=== PATIENT | female | born 1985 | race Caucasian/White ===

== ENCOUNTER 2017-05-11 12:00 | Emergency (ER) | payer OTHER ==
[2017-05-11 12:04] VITALS: BP 134/51; PULSE 98; TEMP 98.1; BMI 30.8
[2017-05-11 12:15] LABS: PH,URINE 8.5 (4.5-8); URINE BILIRUBIN Negative (NEGATIVE); URINE GLUCOSE (UA) Negative (NEGATIVE); URINE KETONE Negative (NEGATIVE); URINE NITRITE Positive (NEGATIVE)
--- NOTE | 2017-05-11 12:17 | PDOC ---
History of Present Illness - General Chief Complaint: Urinary Problem Stated Complaint: UTI WITH BACK PAIN Time Seen by Provider: 05/11/17 12:11 History Source: Patient Exam Limitations: No Limitations - History of Present Illness Travel History: No Initial Comments: 05/11/17 12:45 31y F hx of utis, pyelonephritis, presenst with complaint of dysuria for the past 3 days. Pt states she has been having dysuria, started taking Azo OTC with improvement of symptoms yetserday, but this morning started to have burning when she urinates as well as pain in her lower abd and radiating up her back bl. pt notes she had a temp of 99.9 yesterday and took tylenol. No other fever noted. Pt dneis any n/v, diarrhea, cp, sob, cough. Past History - Past Medical History Allergies/Adverse Reactions: Allergies Allergy/AdvReac Type Severity Reaction Status Date / Time No Known Allergies Allergy Verified 05/11/17 12:04 Home Medications: Ambulatory Orders Fluconazole 150 mg PO ONCE #1 tablet 05/11/17 Levofloxacin [Levaquin] 750 mg PO DAILY #5 tab 05/11/17 Phenazopyridine HCl [Pyridium] 100 mg PO PRN PRN 05/11/17 COPD: No - Surgical History Appendectomy: Yes - Reproductive History Is Patient Now?: No - Suicide/Smoking/Psychosocial Hx Smoking History: Never smoked Hx Alcohol Use: Yes (RARE) Drug/Substance Use Hx: No Substance Use Type: None Review of Systems - Review of Systems Able to Perform ROS?: Yes Comments:: 05/11/17 12:46 Constitutional - no reported Fever, Chills, HEENT: no reported vision changes, sore throat Respiratory: no reported cough, sob, hemoptysis Cardiac: no reported chest pain, palpitations, light headedness, leg swelling Abd/GI: no reported abd pain, nausea, vomiting, blood per rectum, melena, diarrhea : +dysuria, no reported frequency, discharge Musculskelatal - + back pain, no reported joint swelling skin - no reported bruising, erythema, rash neurological: no reported headache, numbness, focal weakness, tingling, ataxia, hematologic: no reported anemia, easy bruising, easy bleeding *Physical Exam - Vital Signs Last Vital Signs Temp Pulse Resp BP Pulse Ox 98.1 F 98 H 16 134/51 96 05/11/17 12:01 05/11/17 12:01 05/11/17 12:01 05/11/17 12:01 05/11/17 12:01 - Physical Exam Comments: 05/11/17 12:47 GENERAL: The patient is awake, alert, and fully oriented, Nontoxic - in no acute distress. HEAD: Normocephalic, atraumatic. ABDOMEN: Soft, nontender, normoactive bowel sounds. No guarding, no rebound. minimal b/l CVA tendeness EXTREMITIES: Normal range of motion, no edema. NEUROLOGICAL: No facial assymetry, Normal speech, PSYCH: Normal mood, normal affect. SKIN: Warm, Dry, normal turgor, Medical Decision Making - Medical Decision Making 05/11/17 12:47 pts UA sigguestive of UTI with her ascending back pain, suspect early pyelo vs msk pain will treat with levaquin return precautions were discussed including worsening symptoms, fever/chills u ruine culture sent I discussed the physical exam findings, ancillary test results and final diagnoses with the patient. I answered all of the patient's questions. The patient was satisfied with the care received and felt comfortable with the discharge plan and treatment plan. The patient will call their primary care physician within 24 hours to arrange follow-up and will return to the Emergency Department with any new, persistent or worsening symptoms. 05/11/17 18:30 pt called back requesting prophylactic dose of diflucan as she tends to get yeast infections when she takes abx - t seems there is a benefit for patients for prophylactic diflucan in setting of antibiotic usage - will send a dose to her pharymacy *DC/Admit/Observation/Transfer Diagnosis at time of Disposition: Urinary tract infection Qualifiers: Urinary tract infection type: acute cystitis Hematuria presence: with hematuria Qualified Code(s): N30.01 - Acute cystitis with hematuria - Discharge Dispostion Disposition: HOME Condition at time of disposition: Good Admit: No - Prescriptions Prescriptions: Fluconazole 150 mg PO ONCE #1 tablet Levofloxacin [Levaquin] 750 mg PO DAILY #5 tab - Referrals Referrals: Willie Morrison MD [Primary Care Provider] - - Patient Instructions Printed Discharge Instructions: DI for Urinary Tract Infection (UTI) Additional Instructions: You have a urinary tract infection it may be an early kidney infection to to your pain. Return to the emergency department immediately with ANY new, persistent or worsening symptoms including worsening abdominal pain, fevers, inability to tolerate oral intake, back pain or any other concerns. Take the antibiotics as prescribed. Take Tylenol for any pain or discomfort. Stay well hydrated. You MUST call and follow up with your doctor in a few days for further evaluation. Your emergency department visit is not complete without a followup with your doctor for reevaluation. Please make sure your doctor reviews the results of your emergency evaluation. - Post Discharge Activity
[2017-05-11 12:19] LABS: URINE APPEARANCE CLOUDY; URINE BLOOD 2+ (NEGATIVE); URINE COLOR YELLOW; URINE PROTEIN 3+ (NEGATIVE)
[2017-05-11 12:20] LABS: HCG,QUALITATIVE URINE NEGATIVE
[2017-05-11 12:49] LABS: EPI CELLS FEW /HPF; URINE BACTERIA MANY /hpf (NEGATIVE); URINE WBC >100 (0-5)
== END 2017-05-11 12:54 | disposition home or self-care (01) ==
LOC: FER 12:00
DX: N30.01 Acute cystitis with hematuria (principal)
CPT/HCPCS: 81003; 81015; 84703; 87086; 87186; 99281-25

== ENCOUNTER 2018-03-09 13:39 | Emergency (ER) | payer OTHER ==
[2018-03-09 13:44] VITALS: BP 148/78; PULSE 74; TEMP 98.9; BMI 29.2
[2018-03-09 14:16] LABS: HCG,QUALITATIVE URINE Negative
[2018-03-09 14:17] LABS: URINE APPEARANCE Cloudy; URINE BILIRUBIN Negative (NEGATIVE); URINE COLOR Yellow; URINE GLUCOSE (UA) Negative (NEGATIVE); URINE KETONE Negative (NEGATIVE); URINE LEUK ESTERASE 3+ (NEGATIVE); URINE NITRITE Positive (NEGATIVE); URINE PROTEIN Negative (NEGATIVE); URINE UROBILINOGEN 0.2 (0.2-1.0)
--- NOTE | 2018-03-09 14:32 | PDOC ---
History of Present Illness - General History Source: Patient Exam Limitations: No Limitations - History of Present Illness Initial Comments: 03/09/18 14:33 The patient is a 32 year old female, with a significant past medical history of frequent UTIs and pyelonephritis (02/2017), who walks into emergency department alone with 3 days of dysuria and lower back pain. The patient endorses associated urinary frequency and urgency. She believes her symptoms onset after holding her urine in for a long car ride. She took Uristat for her symptoms, with relief of the pain. She denies any hematuria. She denies recent fevers, chills, headache or dizziness. She denies recent nausea, vomit, diarrhea or constipation. She denies recent chest pain or shortness of breath. Allergies: NKDA Past surgical history: None reported. Social history: Occasional alcohol usage. Nonsmoker. Denies recreational drug use. Primary Care Physician: Dr. Patel <Rocky Marte - Last Filed: 03/09/18 14:33> <Yonis Kessler - Last Filed: 03/09/18 14:52> - General Chief Complaint: Urinary Problem Stated Complaint: URINARY SX Time Seen by Provider: 03/09/18 14:32 Past History <Rocky Marte - Last Filed: 03/09/18 14:33> - Past Medical History COPD: No Disorders: Yes (RECURRENT UTI'S) - Surgical History Appendectomy: Yes - Reproductive History Is Patient Now?: No - Suicide/Smoking/Psychosocial Hx Smoking History: Never smoked Have you smoked in the past 12 months: No Information on smoking cessation initiated: No Hx Alcohol Use: (occasional) Drug/Substance Use Hx: No Substance Use Type: None <Yonis Kessler - Last Filed: 03/09/18 14:52> - Past Medical History Allergies/Adverse Reactions: Allergies Allergy/AdvReac Type Severity Reaction Status Date / Time No Known Allergies Allergy Verified 03/09/18 13:40 Home Medications: Ambulatory Orders Cranberry 1 tab PO ASDIR 03/09/18 Phenazopyridine HCl [Pyridium -] 200 mg PO PC #12 tablet 03/09/18 Sulfamethoxazole/Trimethoprim [Bactrim Ds Tablet] 1 each PO BID #14 tablet 03/09 Review of Systems - Review of Systems Able to Perform ROS?: Yes Constitutional: No: Symptoms Reported, See HPI, Chills, Diaphoresis, Fever, Loss of Appetite, Malaise, Night Sweats, Weakness, Weight Stable, Unintentional Wgt. Loss, Unexplained wgt Loss, Other HEENTM: No: Symptoms Reported, See HPI, Eye Pain, Blurred Vision, Tearing, Recent change in vision, Double Vision, Cataracts, Ear Pain, Ocular Prothesis, Ear Discharge, Nose Pain, Nose Congestion, Tinnitus, Nose Bleeding, Hearing Loss , Throat Pain, Throat Swelling, Mouth Pain, Dental Problems, Difficulty Swallowing, Mouth Swelling, Other Respiratory: No: Symptoms reported, See HPI, Cough, Orthopnea, Shortness of Breath, SOB with Exertion, SOB at Rest, Stridor, Wheezing, Productive cough, Hemoptysis, Other Cardiac (ROS): No: Symptoms Reported, See HPI, Chest Pain, Edema, Irregular Heart Rate, Lightheadedness, Palpitations, Syncope, Chest Tightness, Other ABD/GI: No: Symptoms Reported, See HPI, Abdominal Distended, Abd. Pain w/ defecation, Blood Streaked Bowels, Constipated, Diarrhea, Difficulty Swallowing , Nausea, Poor Appetite, Poor Fluid Intake, Rectal Bleeding, Vomiting, Indigestion, Abdominal cramping, Tarry Stools, Other : Yes: Dysuria, Frequency, Urgency, Other (Lower back pain.) Integumentary: No: Symptoms Reported, See HPI, Bruising, Change in Color, Change in Hair/Nails, Dryness, Erythema, Flushing, Lesions, Lumps, Pallor, Pruritus, Rash, Sweating, Other Neurological: No: Symptoms reported, See HPI, Headache, Numbness, Paresthesia, Pre-Existing Deficit, Seizure, Tingling, Tremors, Weakness, Unsteady Gait, Ataxia, Dizziness, Other Psychiatric: No: Anxiety, Depression, Frequent Crying, Stressors, Sleep Pattern Change, Emotional Problems, Mood Swings, Change in Appetite, Other Endocrine: No: Symptoms Reported, See HPI, Excessive Sweating, Flushing, Intolerance to Cold, Intolerance to Heat, Increased Hunger, Increased Thirst, Increased Urine, Unexplained Weight Gain, Unexplained Weight Loss, Change in Weight, Other Hematologic/Lymphatic: No: Symptoms Reported, See HPI, Anemia, Blood Clots, Easy Bleeding, Easy Bruising, Bleeding Diathesis, Lymph Node Abnormalities, Swollen Glands, Other All Other Systems: Reviewed and Negative <Rocky Marte - Last Filed: 03/09/18 14:33> *Physical Exam - Vital Signs Last Vital Signs Temp Pulse Resp BP Pulse Ox 98.9 F 74 18 148/78 99 03/09/18 13:39 03/09/18 13:39 03/09/18 13:39 03/09/18 13:39 03/09/18 13:39 - Physical Exam General Appearance: Yes: Mild Distress. No: Nourished, Appropriately Dressed, Apparent Distress, Disheveled, Moderate Distress, Severe Distress, Alcohol on Breath, Intoxicated, Cachetic, Obese, Thin, Other HEENT: positive: EOMI, RADHA, Normal ENT Inspection, Normal Voice, Symmetrical, TMs Normal, Pharynx Normal Neck: positive: Normal Thyroid, Supple Respiratory/Chest: positive: Lungs Clear, Normal Breath Sounds Cardiovascular: positive: Regular Rhythm, Regular Rate Gastrointestinal/Abdominal: positive: Normal Bowel Sounds, Tender (Mild supra pubic tenderness without rebound or guarding. ), Flat, Soft Musculoskeletal: positive: Normal Inspection Extremity: positive: Normal Capillary Refill, Normal Inspection, Normal Range of Motion Integumentary: positive: Normal Color, Dry, Warm Neurologic: positive: historical society director II-XII NML intact, Fully Oriented, Alert, Normal Mood/ Affect, Normal Response <Rocky Marte - Last Filed: 03/09/18 14:33> - Vital Signs Last Vital Signs Temp Pulse Resp BP Pulse Ox 98.9 F 74 18 148/78 99 03/09/18 13:39 03/09/18 13:39 03/09/18 13:39 03/09/18 13:39 03/09/18 13:39 <Yonis Kessler S - Last Filed: 03/09/18 14:52> ED Treatment Course - ADDITIONAL ORDERS Additional order review: Laboratory Results 03/09/18 13:44 Urine Color Yellow Urine Appearance Cloudy Urine pH 6.0 Ur Specific Morton 1.020 Urine Protein Negative Urine Glucose (UA) Negative Urine Ketones Negative Urine Blood 1+ H Urine Nitrite Positive Urine Bilirubin Negative Urine Urobilinogen 0.2 Ur Leukocyte Esterase 3+ H Urine HCG, Qual Negative <Rocky Marte - Last Filed: 03/09/18 14:33> - ADDITIONAL ORDERS Additional order review: Laboratory Results 03/09/18 13:44 Urine Color Yellow Urine Appearance Cloudy Urine pH 6.0 Ur Specific Morton 1.020 Urine Protein Negative Urine Glucose (UA) Negative Urine Ketones Negative Urine Blood 1+ H Urine Nitrite Positive Urine Bilirubin Negative Urine Urobilinogen 0.2 Ur Leukocyte Esterase 3+ H Urine HCG, Qual Negative <Yonis Kessler - Last Filed: 03/09/18 14:52> *DC/Admit/Observation/Transfer - Attestations Scribe Attestion: 03/09/18 14:38 Documentation prepared by Rocky Marte, acting as medical laboratory technicians for Yonis Kessler MD. <Rocky Marte - Last Filed: 03/09/18 14:33> - Discharge Dispostion Decision to Admit order: No <Yonis Kessler - Last Filed: 03/09/18 14:52> Diagnosis at time of Disposition: Urinary tract infection Qualifiers: Urinary tract infection type: acute cystitis Hematuria presence: with hematuria Qualified Code(s): N30.01 - Acute cystitis with hematuria - Discharge Dispostion Disposition: HOME Condition at time of disposition: Stable - Prescriptions Prescriptions: Phenazopyridine HCl [Pyridium -] 200 mg PO PC #12 tablet Sulfamethoxazole/Trimethoprim [Bactrim Ds Tablet] 1 each PO BID #14 tablet - Referrals Referrals: Flaco Patel MD [Primary Care Provider] - Vincent Morrison MD [Staff Physician] - - Patient Instructions Printed Discharge Instructions: DI for Urinary Tract Infection (UTI) - Post Discharge Activity
[2018-03-09] MEDS ORDERED: SULFAMETHOXAZOLE/TRIMETHOPRIM 800MG/160MG D.S. TABLET PO ONE (14:42)
[2018-03-09] MEDS ORDERED: PHENAZOPYRIDINE HCL 100 MG TABLET (FP) PO ONE (14:42)
[2018-03-09 14:44] LABS: EPI CELLS FEW /HPF; URINE BACTERIA 2+ /hpf (NEGATIVE); URINE WBC 40-60 (0-5)
[2018-03-09] MEDS ORDERED: SULFAMETHOXAZOLE/TRIMETHOPRIM 800MG/160MG D.S. TABLET ONE (14:47)
[2018-03-09] MEDS ORDERED: PHENAZOPYRIDINE HCL 100 MG TABLET (FP) ONE (14:47)
== END 2018-03-09 14:55 | disposition home or self-care (01) ==
LOC: FER 13:39
DX: N30.01 Acute cystitis with hematuria (principal)
CPT/HCPCS: 81003; 81015; 84703; 87086; 87186; 99282-25

== ENCOUNTER 2021-11-27 13:09 | Emergency (ER) | payer OTHER ==
[2021-11-27] MEDS ORDERED: ACETAMINOPHEN 1000 MG/100 ML BAG IVPB ONE (13:37)
[2021-11-27] MEDS ORDERED: ONDANSETRON 4 MG/2 ML VIAL IVPUSH ONE (13:37)
[2021-11-27] MEDS ORDERED: SODIUM CHLORIDE 0.9% 1000 ML INFUS.BAG IV ONE (13:37)
[2021-11-27 13:50] VITALS: BP 125/67; PULSE 72; RESP 16; TEMP 98.6; BMI 31.3
[2021-11-27] MEDS ORDERED: MECLIZINE HCL 25 MG TABLET (FP) PO ONE (14:07)
[2021-11-27] MEDS ORDERED: MECLIZINE HCL 25 MG TABLET (FP) ONE (14:32)
== END 2021-11-27 15:06 | disposition home or self-care (01) ==
LOC: FER 13:09
DX: H81.12 Benign paroxysmal vertigo, left ear (principal)
CPT/HCPCS: 81003; 81015; 81025; 93005; 99284-25

== ENCOUNTER 2022-09-18 23:08 | Emergency (ER) | payer OTHER ==
[2022-09-18 23:16] VITALS: BP 152/99; PULSE 75; RESP 18; TEMP 98; BMI 28.1
[2022-09-18] MEDS ORDERED: DIPHTH,PERTUSS(ACELL),TET 0.5 ML DISP.SYRIN IM ONE ×2 (23:23→23:28)
[2022-09-18] MEDS ORDERED: PIPERACILLIN/TAZOB 3.375 GM 3.375 GM in DEXTROSE 5%-WATER - 50 ML IVPB ONE (23:24)
[2022-09-18] MEDS ORDERED: PIPERACILLIN/TAZOBACTAM 3.375 GM VIAL IVPB ONE (23:28)
== END 2022-09-19 00:29 | disposition home or self-care (01) ==
LOC: FER 23:08
PROC: 3E033GC Introduction of Other Therapeutic Substance into Peripheral Vein, Percutaneous Approach (ICD-10-PCS; principal; 2022-09-18)
PROC: 3E0234Z Introduction of Serum, Toxoid and Vaccine into Muscle, Percutaneous Approach (ICD-10-PCS; 2022-09-18)
DX: S61.451A Open bite of right hand, initial encounter (principal); W55.01XA Bitten by cat, initial encounter
CPT/HCPCS: 90471; 90715; 96365; 99284-25

== ENCOUNTER 2023-03-17 12:41 | Emergency (ER) | payer OTHER ==
[2023-03-17 13:07] VITALS: BP 133/83; PULSE 81; RESP 18; TEMP 98; BMI 25.8
== END 2023-03-17 15:20 | disposition home or self-care (01) ==
LOC: FER 12:41
PROC: 0HQGXZZ Repair Left Hand Skin, External Approach (ICD-10-PCS; principal; 2023-03-17)
DX: S61.213A Laceration without foreign body of left middle finger without damage to nail, initial encounter (principal); W25.XXXA Contact with sharp glass, initial encounter; Y93.G1 Activity, food preparation and clean up; Y99.0 Civilian activity done for income or pay
CPT/HCPCS: 73130-TC-LT-FY; 99283-25